=== PATIENT | male | born 1970 | race Two or more races ===

== ENCOUNTER 2024-08-31 09:01 | Day surgery (SDC) | payer BC, SELFPAY ==
[2024-08-31] VITALS (13 sets, daily range): BP systolic 96–160; BP diastolic 56–92; PULSE 82–97; RESP 12–22; TEMP 36.3–36.6; O2SAT 100; BMI 27.4
[2024-08-31] MEDS: ONDANSETRON INJ 2 MG/ML INJ 2 ML 4 MG IV ×2 (09:37→09:38)
[2024-08-31] MEDS: MORPHINE SULF INJ 10 MG/ML VIAL 4 MG IVP (09:38)
[2024-08-31] MEDS: MORPHINE SULF INJ 10 MG/ML VIAL 6 MG IVP (10:51)
[2024-08-31] MEDS: LORazepam 2 MG/ML VIAL 1 MG IVP ×2 (10:52→12:10)
--- NOTE | 2024-08-31 11:02 | EDNOTE_ITS ---
ED Male Genitalurinary RME/HPI General Chief complaint: Urogenital-Male Stated complaint: RIGHT ABD PAIN X LAST NITE; KIDNEY TRANSPLANT 30Y Time Seen by Provider: 08/31/24 09:12 Arrival date/time: 08/31/24 09:01 Limitations: no limitations RME / HPI RME / HPI Narrative: DR. 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 He states that he is normally able to reduce it himself at home but last night he could not and had associated pain. Related Data Previous Rx's ?Medication ?Instructions ?Recorded hydrocodone 5 mg-acetaminophen 325 1 tab PO Q6H PRN pa in #20 tabs 08/31/24 mg tablet Review of Systems Review of Systems Systems Reviewed: All systems reviewed, normal except as documented Narrative Review of Systems: GEN: No fever, no chills, no weight loss EYES: No discharge, no visual changes, no pain HEENT: No ear pain, no congestion, no sore throat PULM: No shortness of breath, no cough, no congestion CV: No chest pain, no dyspnea on exertion, no palpitations GI: No nausea, no vomiting, no diarrhea, no pain, no constipation + recurrent right inguinal hernia with associated pain : No frequency, no urgency and no dysuria MUSC/SKEL: No joint pain, no back pain SKIN: No rash PSYCH: No hallucinations, no depression HEME/LYMPH: No easy bleeding or bruising tendencies NEURO: No weakness, no headache Past Medical History Past Medical History CARDIAC: Negative Congestive Heart Failure RESPIRATORY: Negative Chronic Obstructive Pulmonary Disease (COPD) GENITOURINARY: Negative Renal Disease ENDOCRINE: Negative Diabetes Mellitus Type 1 or Diabetes Mellitus Type 2 Social History SMOKING STATUS: Never smoker SUBSTANCE USE: does not use ALCOHOL: Never ED Exam General Limitations: Present no limitations General appearance: Present alert and in no apparent distress Head Head exam: Present atraumatic, normocephalic and normal inspection Eye Eye exam: Present normal appearance, PERRL and EOMI ENT ENT exam: Present normal exam, normal oropharynx and mucous membranes moist Neck Neck exam: Present normal inspection, full ROM and trachea midline Chest Chest inspection: Present normal inspection and symmetric chest wall rise Respiratory Respiratory exam: Present normal lung sounds bilaterally Cardiovascular Cardiovascular exam: Present regular rate, normal rhythm and normal heart sounds Abdominal Exam Abdominal exam: Present soft and normal bowel sounds exam: Present other (4x4 cm firm area, right inguinal hernia; no redness or discoloration) Extremities Exam Extremities exam: Present normal inspection and full ROM Back Exam Back exam: Present normal inspection and full ROM Neurological Exam Neurological exam: Present alert, oriented X3 and CN II-XII intact Psychiatric Psychiatric exam: Present normal affect and normal mood Skin Skin exam: Present warm, dry, intact and normal color Course Quality Measures none Orders Category Date Time Status Patient Condition Routine Admission 08/31/24 13:[address] in Surgical Day Care Routine Admission 08/31/24 13:19 Active Activity as Tolerated Routine Care 08/31/24 13:19 Ordered DC Home When Criteria Met . Care 08/31/24 16:48 Active EKG (ED ONLY) *Do not use* NOW Care 08/31/24 12:45 Completed Insert IV NOW Care 08/31/24 09:26 Active Insert IV NOW Care 08/31/24 13:19 Completed Obtain Written Consent For: NOW Care 08/31/24 13:19 Completed Discharge Routine Discharge 08/31/24 16:55 Active EKG (ED Only) Stat Exams 08/31/24 12:45 Draft XR chest 1V Stat Exams 08/31/24 12:45 Completed CBC Stat Lab 08/31/24 09:30 Completed CMP [Comprehensive Metabolic Panel] Stat Lab 08/31/24 09:30 Completed Acetaminophen Ivpb [Ofirmev Inj] Med 08/31/24 16:48 Pending 1,000 mg in 100 ml IV PRN Bupivacaine Mpf 0.5% [Sensorcaine-Mpf Inj 0.5%] Med 08/31/24 14:34 Discontinued 30 ml .ROUTE .STK-MED ONE LORazepam [Ativan Inj] Med 08/31/24 10:26 Discontinued 1 mg IVP X1 ONE LORazepam [Ativan Inj] Med 08/31/24 11:35 Discontinued 1 mg IVP X1 ONE Midazolam Inj [Versed Inj] Med 08/31/24 14:21 Discontinued 2 mg .ROUTE .STK-MED ONE Morphine Inj Med 08/31/24 11:35 Discontinued 2 mg IVP X1 ONE Morphine Inj Med 08/31/24 09:25 Discontinued 4 mg IVP X1 ONE Morphine Inj Med 08/31/24 10:24 Discontinued 6 mg IVP X1 ONE Ondansetron Inj [Zofran Inj] Med 08/31/24 16:48 Pending 4 mg IV Q6HR PRN Ondansetron Inj [Zofran Inj] Med 08/31/24 09:25 Discontinued 4 mg IV X1 ONE PHENYLEPHRINE INJ in NS [Baldomero-synephrine Inj/Ns] Med 08/31/24 15:41 Discontinued 1,000 mcg .ROUTE .STK-MED ONE Propofol Inj [Diprivan Inj] Med 08/31/24 14:21 Discontinued 200 mg IV .STK-MED ONE Sodium Chloride 0.9% 1000 ml [Ns] 1,000 ml Med 08/31/24 13:30 Active IV 100 mls/hr ceFAZolin [Ancef] Med 08/31/24 15:39 Discontinued 2 gm .ROUTE .STK-MED ONE ePHEDrine SULF INJ Med 08/31/24 15:31 Discontinued 50 mg .ROUTE .STK-MED ONE fentaNYL INJ [Sublimaze Inj] Med 08/31/24 14:21 Discontinued 100 mcg .ROUTE .STK-MED ONE fentaNYL INJ [Sublimaze Inj] Med 08/31/24 16:48 Pending 50 mcg IV Q5M PRN Code Status Routine Oth 08/31/24 13:19 Ordered Oxygen Delivery PRN RT 08/31/24 16:48 Active Vital Signs Vital signs: Vital Signs Temperature 97.9 F 08/31/24 09:31 Pulse Rate 82 08/31/24 09:31 Respiratory Rate 22 H 08/31/24 09:31 Blood Pressure 160/92 H 08/31/24 09:31 Pulse Oximetry (%) 100 08/31/24 09:31 Oxygen Delivery Method Room Air 08/31/24 09:31 Procedures -ED Procedure Comment At 1200 hours, 2 attempts to reduce hernia failed. EKG Interpretation #1: Date of EK08/31/24 Time of EK:02 Rate: 81 Interpretation: Interpreted by me Additional EKG comment: sinus rhythm, rate 81, normal intervals, normal axis, no acute ST-T wave changes. Urogenital - Male MDM Narrative MDM Narrative:: ISelene am scribing for and in the presence of Dr. Romero. Patient data External records reviewed:: None (no previous visits) Clinical information provided by:: patient and spouse Social determinants that could affect healthcare access:: none Patient has the following chronic illnesses:: Renal transplant in adolescence due to congenital defect. Recurrent right inguinal hernia. How is presenting disease/condition affected by chronic disease/condition?: exacerbated by Evaluation data The following diagnostics were reviewed and interpreted by me:: lab results, radiology exam(s) and EKG tracing(s) Lab and/or radiology exams considered but not ordered:: none Interpretation Summary: Procedure(s): XR chest 1V Accession Number(s): [id number] cc: Gray Romero MD; Burt Smith MD; NO PRIMARY/FAMILY,PHYSICIAN~ Examination: AP chest single view Technique one AP portable semiupright chest single view Exam date and time: August 31, 2024 1317 hours INDICATIONS: Right-sided abdomen pain, renal failure patient with kidney transplant, preop, history right pneumonia FINDINGS: Normal heart size The lungs are clear. The osseous structures are intact IMPRESSION: No active disease Dictated By: Burt Smith MD Medications / Prescriptions Medications or Prescriptions considered but not ordered:: none Medication administrations:: Medication Administration History Fentanyl Citrate (Fentanyl Cit Inj 50 Mcg/Ml Amp 2ml) 50 mcg IV Q5M PRN PRN Reason: PAIN SCALE 4-6 (Moderate Stop: 08/31/24 18:48 Sodium Chloride (Ns) 1,000 mls @ 100 mls/hr IV .Q10H [facility] Stop: 09/30/24 13:29 Last Admin: 08/31/24 14:47 Dose: 100 mls/hr Documented By: VG Acetaminophen (Ofirmev Inj) 1,000 mg in 100 mls @ 250 mls/hr IV PRN PRN PRN Reason: PAIN 1-6 (mild-mod Ondansetron HCl (Ondansetron Inj 2 Mg/Ml Inj 2 Ml) 4 mg IV Q6HR PRN; Protocol PRN Reason: NAUSEA OR VOMITING Stop: 09/30/24 16:47 Discontinued Medications Bupivacaine HCl (Bupivacaine Mpf 0.5% 10 Ml Vial) Confirm Administered Dose 30 ml .ROUTE .STK-MED ONE Stop: 08/31/24 14:35 Cefazolin Sodium (Cefazolin Inj 1 Gm Vial) Confirm Administered Dose 2 gm .ROUTE .STK-MED ONE Stop: 08/31/24 15:40 Ephedrine Sulfate (Ephedrine Sulf Inj 50 Mg/Ml Vial) Confirm Administered Dose 50 mg .ROUTE .STK-MED ONE Stop: 08/31/24 15:32 Fentanyl Citrate (Fentanyl Cit Inj 50 Mcg/Ml Amp 2ml) Confirm Administered Dose 100 mcg .ROUTE .STK-MED ONE Stop: 08/31/24 14:22 Lorazepam (Lorazepam 2 Mg/Ml Vial) 1 mg IVP X1 ONE Stop: 08/31/24 10:27 Last Admin: 08/31/24 10:52 Dose: 1 mg Documented By: VG Lorazepam (Lorazepam 2 Mg/Ml Vial) 1 mg IVP X1 ONE Stop: 08/31/24 11:36 Last Admin: 08/31/24 12:10 Dose: 1 mg Documented By: VG Midazolam HCl (Midazolam Inj 1 Mg/Ml Vial 2 Ml) Confirm Administered Dose 2 mg .ROUTE .STK-MED ONE Stop: 08/31/24 14:22 Morphine Sulfate (Morphine Sulf Inj 10 Mg/Ml Vial) 4 mg IVP X1 ONE Stop: 08/31/24 09:26 Last Admin: 08/31/24 09:38 Dose: 4 mg Documented By: ERIK Morphine Sulfate (Morphine Sulf Inj 10 Mg/Ml Vial) 6 mg IVP X1 ONE Stop: 08/31/24 10:25 Last Admin: 08/31/24 10:51 Dose: 6 mg Documented By: RUPINDER Morphine Sulfate (Morphine Sulf Inj 10 Mg/Ml Vial) 2 mg IVP X1 ONE Stop: 08/31/24 11:36 Last Admin: 08/31/24 12:09 Dose: 2 mg Documented By: RUPINDER Ondansetron HCl (Ondansetron Inj 2 Mg/Ml Inj 2 Ml) 4 mg IV X1 ONE; Protocol Stop: 08/31/24 09:26 Last Admin: 08/31/24 09:38 Dose: 4 mg Documented By: Admin: 08/31/24 09:37 Dose: 4 mg Documented By: ERIK Phenylephrine HCl (Phenylephrine Inj In Ns 100 Mcg/Ml 10 Ml Syringe) Confirm Administered Dose 1,000 mcg .ROUTE .STK-MED ONE Stop: 08/31/24 15:42 Propofol (Propofol Inj 10 Mg/Ml Vial 20 Ml) Confirm Administered Dose 200 mg IV .STK-MED ONE Stop: 08/31/24 14:22 see above Consultations Consultation(s) initiated? (list below): Yes Consultation #1 (Physician, Specialty, Details): Discussed test HPI, PMHx, lab, radiology results and/or management with Dr. Gilbert. Will come see the patient and try to reduce hernia. Time: 12:22 Consultation #2 (Physician, Specialty, Details): Discussed the case with Dr. Gilbert, he is going to take him to surgery. Time: 12:44 Diagnosis Urogenital Male Differential Diagnosis: inguinal hernia and other (abscess, cellulitis) Most likely diagnosis given after review of the tests above:: Incarcerated right inguinal hernia Admission Indicated Admission indicated?: indicated Admission Request Was there a request for admission?: Yes Admission Attestation Admission request attestation: Discussed case with [] from Hospitalist service regarding admission. Discussed patients ED course, exam findings, labs, and radiology results. The Hospitalist [agrees,declines] to accept the patient for admission. Disposition Plan Disposition Plan: Admit Discharge Plan Plan Patient Disposition: Other Care w/in Hosp (SDC/ROSSI) Problem List Clinical Impression: Incarcerated right inguinal hernia
[2024-08-31] MEDS: MORPHINE SULF INJ 10 MG/ML VIAL 2 MG IVP (12:09)
--- NOTE | 2024-08-31 12:45 | XR_ITS ---
Examination: AP chest single view Technique one AP portable semiupright chest single view Exam date and time: August 31, 2024 1317 hours INDICATIONS: Right-sided abdomen pain, renal failure patient with kidney transplant, preop, history right pneumonia FINDINGS: Normal heart size The lungs are clear. The osseous structures are intact IMPRESSION: No active disease
--- NOTE | 2024-08-31 12:45 | EKG_ITS ---
[facility] Test Date: 2024-08-31 Pat Name: SIERRA ARRIAGA Department: Room: - Gender: Male Clinical Rehabilitation Specialist: : 1970 Requested By: Gray Romero Order Number: [id number] Reading MD: Gray Romero Measurements Intervals [place] Rate: 81 P: 25 UT: 159 QRS: 31 QRSD: 90 T: 35 QT: 359 QTc: 417 Interpretive Statements SINUS RHYTHM No previous ECG available for comparison /store/S0/[id number]/[id number].pdf
[2024-08-31 13:20] LABS: Basophils # (Auto) 0.1 Thou/mm3 (0.0-0.2); Basophils % (Auto) 1 % (0-2.5); Eosinophils # (Auto) 0.2 Thou/mm3 (0.0-0.5); Eosinophils % (Auto) 2 % (0-10); Hematocrit 35.4 % (41.0-53.0); Hemoglobin 11.6 g/dL (13.5-16.0); Immature Granulocytes % (Auto) 1 % (0-0); Immature Granulocytes Auto 0.05 Thou/mm3 (0.00-0.00); Lymphocytes % (Auto) 33 % (10-50); Mean Corpuscular HGB Conc 32.8 g/dl (31.0-37.0); Mean Corpuscular Volume 83 fL (80-100); Monocytes # (Auto) 0.9 Thou/mm3 (0.0-0.8); Monocytes % (Auto) 10 % (0-12); Neutrophils # (Auto) 4.8 Thou/mm3 (1.8-7.7); Neutrophils % (Auto) 54 % (37-80); Nucleated Red Blood Cell % 0 /100 WBC (0); Platelet Count 450 Thou/mm3 (140-440); RDW Standard Deviation 39.4 fL (35.1-43.9); Red Blood Count 4.29 Miln/mm3 (4.50-5.90)
[2024-08-31 13:37] LABS: Alanine Aminotransferase 182 U/L (10-49); Albumin, Serum 4.2 gm/dL (3.5-5.0); Alkaline Phosphatase 205 U/L (46-116); Anion Gap 13 (7-16); Aspartate Amino Transferase 132 U/L (0-34); BUN/Creatinine Ratio 28 Ratio (12-20); Bilirubin,Total 0.3 mg/dL (0.3-1.2); Blood Urea Nitrogen 45 mg/dL (9-23); Calcium 9.6 mg/dL (8.3-10.6); Calcium (Corrected) 9.6 mg/dL (8.5-10.1); Chloride 101 mMol/L (98-107); Creatinine (Component) 1.6 mg/dL (0.6-1.3); Estimated Creatinine Clearance 51.1 mL/min (>60); Globulin 4.2 gm/dL (2.3-3.5); Glucose 140 mg/dL (74-106); Osmolality,Calculated 285 (275-295); Potassium 4.7 mMol/L (3.4-5.1); Sodium 136 mMol/L (136-145); Total Protein 8.4 gm/dL (5.7-8.2); eGFR 52 See Note
[2024-08-31] MEDS: SODIUM CHLORIDE 0.9% 1000 ML 1,000 ML 100 ML IV (14:47)
--- NOTE | 2024-08-31 15:22 | PD.SURHP ---
HPI Date of Admission 08/31/2024 Chief Complaint Chief Complaint: Patient is admitted with the complaints of incarcerated right inguinal hernia HPI History of Lia's revealed that the patient has had this hernia for about a period of 1 year and it usually goes inside. This morning it came out and is not able to reduce it. Therefore he came to the emergency room and attempts were made by the ER physicians to reduce it but it was unsuccessful therefore surgical consultation was obtained. Patient denies any vomiting or obstructive symptoms. Patient's most medical history consisted of renal transplantation when he was in his 20s and he is not taking any immunosuppression. He is working [email or web address]. Denies any major medical illness like diabetes or hypertension or heart disease Past Medical History Past Medical History NEUROLOGIC: Negative Seizures CARDIAC: Negative Congestive Heart Failure RESPIRATORY: Negative Chronic Obstructive Pulmonary Disease (COPD) GENITOURINARY: Negative Renal Disease ENDOCRINE: Negative Diabetes Mellitus Type 1 or Diabetes Mellitus Type 2 OTHER HISTORY: Negative Blood Transfusions, Blood Transfusion Reaction or Anesthesia Reactions Social History SMOKING STATUS: Never smoker SUBSTANCE USE: does not use Meds Home Medications and Allergies Allergies Allergy/AdvReac Type Severity Reaction Status Date / Time No Known Allergies Allergy Mild Uncoded 03/31/08 15:44 Exam Vital Signs Temp Pulse Resp BP Pulse Ox O2 Del Method 97.6 F 84 18 131/90 H 100 Room Air 08/31/24 12:46 08/31/24 12:46 08/31/24 12:46 08/31/24 12:46 08/31/24 12:46 08/31/24 12:46 Narrative Exam Physical examination revealed well-built well-nourished male who speaks some Guatemalan he is 5 feet 5 inches tall weighing 165 pounds. His vital signs are normal Routine HEENT Exam Comments: Examination of the face revealed some eczematous lesions over his chin and over the left upper extremity near the shoulder Routine Abdominal Exam Comments: Abdominal examination showed that he had nonreducible mass in the right groin. Patient also had a surgical scar in the right lower quadrant from kidney transplant. The scrotum appears normal with a normal testicles on the right Routine Rectal Exam Comments: Deferred Routine Exam Comments: Deferred Results Results: Laboratory Laboratory Narrative: Patient's laboratory workup revealed normal WBC but his BUN is up to 45 and creatinine 1.6 I do not know whether this is his normal labs. His liver enzymes are also elevated Results: Imaging Imaging narrative: Chest x-ray is negative Assessment & Plan Additional Assessment Additional comments: Impression: Incarcerated right inguinal hernia Status post renal transplantation Chronic renal disease Plan Plan: I made attempts to reduce this hernia in the emergency room but it was unsuccessful and very painful. Even though there was some sedation given to him by the ER physicians it was difficult to reduce. Therefore I have advised the patient to undergo repair of this inguinal hernia under general anesthesia. The procedure was explained to him and his and they are agreeable. Quality Measures Quality Measures none
--- NOTE | 2024-08-31 16:49 | SUR.PHASEI ---
[id number] patient arrived to recovery room s/p hernia repair with LMA in place. dressing to right groin/inguinal area dry with no bleeding. Report received from Leobardo LEIJA and Caryn KUMAR
--- NOTE | 2024-08-31 17:00 | ESOP_ITS ---
Date of Procedure 08/31/24 Pre Op Diagnosis Incarcerated right inguinal hernia Post Op Diagnosis Incarcerated right indirect inguinal hernia Procedure Repair of the incarcerated right indirect inguinal hernia Findings Patient is found to have omentum which was herniating through the sac which was stuck and difficult to reduce. There is no small bowel involved in the hernia Procedure Description After the patient was brought to the operating room LMA anesthesia was given. He was given 2 g of Ancef. Timeout is performed after the area was prepped with ChloraPrep solution. Standard right groin incision was made the external oblique was incised. Obviously patient had an obstruction the external ring as we expected. After the release of the external ring the hernia reduced and the encircled around the hernia on the cord structures. Then the hernial sac was from the cord structures to which was firmly adherent. There were no small bowel send the sac. There were mostly omentum and some preperitoneal fat. This was dissected out carefully avoiding injury to the cord structures which was using a Layton drain. The sac was closed with 2-0 chromic sutures and reduced. Surprisingly there was not much of dilated inguinal ring. There is not major defect in the floor of the inguinal canal either other than some weakness. Therefore I placed a 2 x 4 Marlex mesh and attached it medially to the tissues next to the pubic tubercle with 2-0 Prolene. Then this was tucked underneath the external oblique after crossing the cord structures. 1 stitch was placed lateral to the cord structures. Then I closed the external oblique with a running 2-0 Vicryl and Nidhi's fascia with 3-0 plain. Skin was closed with 4-0 Monocryl subcuticular stitch after injecting local anesthesia. Anesthesia other (General LMA) Pathology / specimen None IVF Infused 900 Estimated Blood Loss 20 Condition Stable Disposition PACU Surgeon Robert Kwong MD Surgical Staff Operation Date: 08/31/24 15:15 Case Staff CABLE ARMORER OPERATOR: Hermes Booth RNraw scales operator: Pratima Wiseman
--- NOTE | 2024-08-31 18:39 | SUR.PHASEII ---
1800 patient is awake, alert, breathing unlabored, dressing dry with no bleeding, patient able to tolerate ice chips and 7up with no nausea or vomiting, meets discharge criteria, discharge instructions given to patient and , patient discharged home in wheelchair with all belongings.
== END 2024-08-31 18:00 | disposition home or self-care (01) ==
LOC: SERX 12:49 → S2EX 13:39
PROVIDERS: Emergency Provider Emergency Medicine; Referring Provider Surgery; Visit Provider Surgery
PROC: (CPT 49507; principal; 2024-08-31 15:00)
DX: K40.30 Unilateral inguinal hernia, with obstruction, without gangrene, not specified as recurrent (principal); N18.9 Chronic kidney disease, unspecified; Z94.0 Kidney transplant status; Z01.810 Encounter for preprocedural cardiovascular examination
CPT/HCPCS: 49507; 36415; 71045; 80053; 85025; 93005; 96374; 96375; 96376; 99285; A4217; A4649; C1781; J0690; J2060; J2250; J2270; J2371; J2405; J2704; J3010; J3490; J7030

== ENCOUNTER → 2024-11-28 | Outpatient (CLI) | payer BC, SELFPAY ==
[2024-11-28 15:48] LABS: Basophils # (Auto) 0.1 Thou/mm3 (0.0-0.2); Basophils % (Auto) 1 % (0-2.5); Eosinophils # (Auto) 0.3 Thou/mm3 (0.0-0.5); Eosinophils % (Auto) 6 % (0-10); Hematocrit 37.5 % (41.0-53.0); Hemoglobin 11.9 g/dL (13.5-16.0); Immature Granulocytes % (Auto) 1 % (0-0); Immature Granulocytes Auto 0.04 Thou/mm3 (0.00-0.00); Lymphocytes # (Auto) 1.6 Thou/mm3 (1.0-4.8); Lymphocytes % (Auto) 27 % (10-50); Mean Corpuscular HGB Conc 31.7 g/dl (31.0-37.0); Mean Corpuscular Hemoglobin 27.3 pg (25.0-35.0); Mean Corpuscular Volume 86 fL (80-100); Monocytes # (Auto) 0.5 Thou/mm3 (0.0-0.8); Monocytes % (Auto) 8 % (0-12); Neutrophils # (Auto) 3.3 Thou/mm3 (1.8-7.7); Neutrophils % (Auto) 57 % (37-80); Nucleated Red Blood Cell % 0 /100 WBC (0); Platelet Count 334 Thou/mm3 (140-440); RDW Standard Deviation 46.2 fL (35.1-43.9); Red Blood Count 4.36 Miln/mm3 (4.50-5.90); White Blood Count 5.8 Thou/mm3 (3.8-10.6)
[2024-11-28 15:58] LABS: Glucose Estimated Average 114 mg/dL (80-131); Hemoglobin A1C 5.6 % Hgb (4.8-6.0)
[2024-11-28 16:09] LABS: Ferritin 38 ng/mL (10.5-307.3); T4 (Thyroxine) 9.4 mcg/dL (4.5-10.9)
[2024-11-28 16:10] LABS: Alanine Aminotransferase 11 U/L (10-49); Albumin, Serum 4.2 gm/dL (3.5-5.0); Alkaline Phosphatase 85 U/L (46-116); Anion Gap 9 (7-16); Aspartate Amino Transferase 15 U/L (0-34); BUN/Creatinine Ratio 28 Ratio (12-20); Bilirubin,Total 0.2 mg/dL (0.3-1.2); Blood Urea Nitrogen 36 mg/dL (9-23); Calcium 9.1 mg/dL (8.3-10.6); Calcium (Corrected) 9.1 mg/dL (8.5-10.1); Chloride 105 mMol/L (98-107); Creatinine (Component) 1.3 mg/dL (0.6-1.3); Globulin 4.1 gm/dL (2.3-3.5); Glucose 81 mg/dL (74-106); Osmolality,Calculated 286 (275-295); Potassium 4.4 mMol/L (3.4-5.1); Sodium 140 mMol/L (136-145); Thyroid Stimulating Hormone 2.48 uIU/mL (0.55-4.78); Total Protein 8.3 gm/dL (5.7-8.2); Uric Acid 8.8 mg/dL (3.7-9.2); eGFR > 60 See Note
[2024-11-28 16:33] LABS: Syphilis Reactive (Nonreactive)
[2024-11-28 16:34] LABS: MHATP/TP-PA* See Sep Rpt
[2024-11-28 16:39] LABS: Sed Rate (ESR) 59 mm/hr (0-20)
[2024-11-29 11:02] LABS: Chlamydia trachomatis PCR Negative (Not Detect); Neisseria Gonorrhoeae DNA PCR Negative (Not Detect); Trichomonas Negative (Negative)
[2024-12-07 06:24] LABS: ANA Screen, IFA NEGATIVE (NEGATIVE); HIV Ag/Ab, 4th Gen NON-REACTIVE
== END | disposition home or self-care (01) ==
LOC: COPL 15:01
PROVIDERS: PCP Nurse Practitioner Family; Referring Provider Nurse Practitioner Family; Visit Provider Nurse Practitioner Family
DX: D89.9 Disorder involving the immune mechanism, unspecified (principal); I10 Essential (primary) hypertension; Z11.3 Encounter for screening for infections with a predominantly sexual mode of transmission
CPT/HCPCS: 36415; 80053; 82728; 83036; 84436; 84443; 84550; 85025; 85652; 86038; 86780; 87389; 87491; 87591; 87661

== ENCOUNTER → 2024-11-29 | Outpatient (CLI) | payer BC, SELFPAY | END | disposition home or self-care (01) | LOC: SLDO 15:02 | PROVIDERS: PCP Family Medicine; Referring Provider Nurse Practitioner Family; Visit Provider Nurse Practitioner Family | DX: L03.90 Cellulitis, unspecified (principal); L98.9 Disorder of the skin and subcutaneous tissue, unspecified; Z11.3 Encounter for screening for infections with a predominantly sexual mode of transmission | CPT/HCPCS: 87070; 87077; 87186; 87205 ==

== ENCOUNTER → 2024-12-12 | Outpatient (CLI) | payer BC, SELFPAY ==
[2024-12-12 12:39] LABS: Misc Send Out* See Sep Rpt
[2024-12-12 13:35] LABS: Cardiac Risk Estimate 4.6 RATIO (4.0-6.7); Cholesterol 238 mg/dL (132-200); HDL Cholesterol 52 mg/dL (40-60); LDL Cholesterol,Calculated 160 mg/dL (0-130); Triglycerides 129 mg/dL (30-150)
[2024-12-12 13:38] LABS: Ferritin 21 ng/mL (10.5-307.3); Iron 56 mcg/dL (65-175); Percent Iron Saturation 16 % (20-55); Total Iron Binding Capacity 346 mcg/dL (250-425); Unsaturated Iron Binding 290 (225-295)
[2024-12-20 06:38] LABS: Homocysteine* 13.1 umol/L (< OR = 15.2); Methylmalonic Acid, GC/MS/MS* 200 nmol/L (55-335)
== END | disposition home or self-care (01) ==
LOC: COPL 12:26
PROVIDERS: PCP Nurse Practitioner Family; Referring Provider Nurse Practitioner Family; Visit Provider Nurse Practitioner Family
DX: D64.9 Anemia, unspecified (principal); E78.5 Hyperlipidemia, unspecified
CPT/HCPCS: 36415; 80061; 82728; 83090; 83540; 83550; 83921

== ENCOUNTER → 2025-04-03 | Outpatient (CLI) | payer BC, SELFPAY ==
[2025-04-03 10:29] LABS: Misc Send Out* See Sep Rpt
[2025-04-03 11:32] LABS: Basophils # (Auto) 0.0 Thou/mm3 (0.0-0.2); Basophils % (Auto) 1 % (0-2.5); Eosinophils # (Auto) 0.2 Thou/mm3 (0.0-0.5); Eosinophils % (Auto) 4 % (0-10); Hematocrit 37.7 % (41.0-53.0); Hemoglobin 13.0 g/dL (13.5-16.0); Immature Granulocytes Auto 0.02 Thou/mm3 (0.00-0.00); Lymphocytes # (Auto) 2.0 Thou/mm3 (1.0-4.8); Lymphocytes % (Auto) 38 % (10-50); Mean Corpuscular HGB Conc 34.5 g/dl (31.0-37.0); Mean Corpuscular Hemoglobin 29.7 pg (25.0-35.0); Mean Corpuscular Volume 86 fL (80-100); Monocytes # (Auto) 0.6 Thou/mm3 (0.0-0.8); Monocytes % (Auto) 12 % (0-12); Neutrophils # (Auto) 2.4 Thou/mm3 (1.8-7.7); Neutrophils % (Auto) 45 % (37-80); Nucleated Red Blood Cell # 0.00 Thou/mm3 (0.00-0.00); Nucleated Red Blood Cell % 0 /100 WBC (0); Platelet Count 270 Thou/mm3 (140-440); RDW Standard Deviation 41.3 fL (35.1-43.9); Red Blood Count 4.37 Miln/mm3 (4.50-5.90); White Blood Count 5.2 Thou/mm3 (3.8-10.6)
[2025-04-03 11:43] LABS: Glucose Estimated Average 120 mg/dL (80-131); Hemoglobin A1C 5.8 % Hgb (4.8-6.0)
[2025-04-03 11:51] LABS: Alanine Aminotransferase 14 U/L (10-49); Albumin, Serum 4.2 gm/dL (3.5-5.0); Albumin/Globulin Ratio 1.6 (1.2-2.2); Alkaline Phosphatase 71 U/L (46-116); Anion Gap 8 (7-16); Aspartate Amino Transferase 22 U/L (0-34); BUN/Creatinine Ratio 23 Ratio (12-20); Bilirubin,Total 0.2 mg/dL (0.3-1.2); Blood Urea Nitrogen 35 mg/dL (9-23); Calcium 9.6 mg/dL (8.3-10.6); Calcium (Corrected) 9.6 mg/dL (8.5-10.1); Carbon Dioxide 24.5 mMol/L (20.0-31.0); Cardiac Risk Estimate 5.8 RATIO (4.0-6.7); Chloride 109 mMol/L (98-107); Cholesterol 216 mg/dL (132-200); Creatinine (Component) 1.5 mg/dL (0.6-1.3); Globulin 2.7 gm/dL (2.3-3.5); Glucose 103 mg/dL (74-106); HDL Cholesterol 37 mg/dL (40-60); Osmolality,Calculated 289 (275-295); Potassium 4.0 mMol/L (3.4-5.1); Sodium 141 mMol/L (136-145); Thyroid Stimulating Hormone 3.54 uIU/mL (0.55-4.78); Total Protein 6.9 gm/dL (5.7-8.2); Triglycerides 607 mg/dL (30-150); Uric Acid 9.1 mg/dL (3.7-9.2); eGFR 55 See Note
[2025-04-03 11:52] LABS: Ferritin 30 ng/mL (10.5-307.3); Iron 41 mcg/dL (65-175); Percent Iron Saturation 11 % (20-55); T4 (Thyroxine) 6.1 mcg/dL (4.5-10.9); Total Iron Binding Capacity 344 mcg/dL (250-425); Unsaturated Iron Binding 303 (225-295)
[2025-04-03 11:56] LABS: Sed Rate (ESR) 28 mm/hr (0-20)
[2025-04-03 12:09] LABS: MHATP/TP-PA* See Sep Rpt; Syphilis Reactive (Nonreactive)
[2025-04-03 12:24] LABS: Folate 23.93 ng/mL (>5.38); Vitamin B12 746 pg/mL (211-911)
== END | disposition home or self-care (01) ==
LOC: COPL 09:59
PROVIDERS: PCP Nurse Practitioner Family; Referring Provider Nurse Practitioner Family; Visit Provider Nurse Practitioner Family
DX: D64.9 Anemia, unspecified (principal); I10 Essential (primary) hypertension; A53.9 Syphilis, unspecified; E78.5 Hyperlipidemia, unspecified; M10.9 Gout, unspecified
CPT/HCPCS: 36415; 80053; 80061; 82607; 82728; 82746; 83036; 83540; 83550; 84436; 84443; 84550; 85025; 85652; 86780

== ENCOUNTER → 2025-06-12 | Outpatient (CLI) | payer BC, SELFPAY ==
[2025-06-12 11:09] LABS: Basophils # (Auto) 0.1 Thou/mm3 (0.0-0.2); Basophils % (Auto) 1 % (0-2.5); Eosinophils # (Auto) 0.2 Thou/mm3 (0.0-0.5); Eosinophils % (Auto) 3 % (0-10); Hematocrit 40.4 % (41.0-53.0); Hemoglobin 13.4 g/dL (13.5-16.0); Immature Granulocytes Auto 0.04 Thou/mm3 (0.00-0.00); Lymphocytes # (Auto) 2.0 Thou/mm3 (1.0-4.8); Lymphocytes % (Auto) 34 % (10-50); Mean Corpuscular HGB Conc 33.2 g/dl (31.0-37.0); Mean Corpuscular Hemoglobin 28.9 pg (25.0-35.0); Mean Corpuscular Volume 87 fL (80-100); Monocytes # (Auto) 0.6 Thou/mm3 (0.0-0.8); Monocytes % (Auto) 10 % (0-12); Neutrophils # (Auto) 3.0 Thou/mm3 (1.8-7.7); Neutrophils % (Auto) 51 % (37-80); Nucleated Red Blood Cell # 0.00 Thou/mm3 (0.00-0.00); Nucleated Red Blood Cell % 0 /100 WBC (0); Platelet Count 295 Thou/mm3 (140-440); RDW Standard Deviation 40.2 fL (35.1-43.9); Red Blood Count 4.63 Miln/mm3 (4.50-5.90); White Blood Count 5.9 Thou/mm3 (3.8-10.6)
[2025-06-12 11:25] LABS: Alanine Aminotransferase 26 U/L (10-49); Albumin, Serum 4.5 gm/dL (3.5-5.0); Albumin/Globulin Ratio 1.3 (1.2-2.2); Alkaline Phosphatase 74 U/L (46-116); Anion Gap 9 (7-16); Aspartate Amino Transferase 29 U/L (0-34); BUN/Creatinine Ratio 16 Ratio (12-20); Bilirubin,Total 0.3 mg/dL (0.3-1.2); Blood Urea Nitrogen 24 mg/dL (9-23); Calcium 9.6 mg/dL (8.3-10.6); Calcium (Corrected) 9.6 mg/dL (8.5-10.1); Carbon Dioxide 24.0 mMol/L (20.0-31.0); Cardiac Risk Estimate 5.5 RATIO (4.0-6.7); Chloride 108 mMol/L (98-107); Cholesterol 226 mg/dL (132-200); Creatinine (Component) 1.5 mg/dL (0.6-1.3); Globulin 3.4 gm/dL (2.3-3.5); Glucose 96 mg/dL (74-106); HDL Cholesterol 41 mg/dL (40-60); LDL Cholesterol,Calculated 126 mg/dL (0-130); Osmolality,Calculated 285 (275-295); Potassium 4.6 mMol/L (3.4-5.1); Sodium 141 mMol/L (136-145); Total Protein 7.9 gm/dL (5.7-8.2); Triglycerides 293 mg/dL (30-150); Uric Acid 7.6 mg/dL (3.7-9.2); eGFR 55 See Note
[2025-06-12 11:30] LABS: Ferritin 38 ng/mL (10.5-307.3); Iron 64 mcg/dL (65-175); Percent Iron Saturation 19 % (20-55); Total Iron Binding Capacity 327 mcg/dL (250-425); Unsaturated Iron Binding 263 (225-295)
[2025-06-12 11:46] LABS: MHATP/TP-PA* See Sep Rpt; Syphilis Reactive (Nonreactive)
== END | disposition home or self-care (01) ==
LOC: COPL 10:12
PROVIDERS: PCP Nurse Practitioner Family; Referring Provider Nurse Practitioner Family; Visit Provider Nurse Practitioner Family
DX: M10.9 Gout, unspecified (principal); A53.9 Syphilis, unspecified; D50.9 Iron deficiency anemia, unspecified; E78.1 Pure hyperglyceridemia
CPT/HCPCS: 36415; 80053; 80061; 82728; 83540; 83550; 84550; 85025; 86780